=== PATIENT | male | born 1965 | race Caucasian/White ===

== ENCOUNTER 2016-03-25 11:15 | Emergency (ER) | payer OTHER ==
[2016-03-25] MEDS ORDERED: 0.9 % SODIUM CHLORIDE 1,000 ML IV ONE (11:58)
--- NOTE | 2016-03-25 12:00 | ED Physician Documentation ---
Dizziness - HISTORIAN Historian: patient, spouse - HPI Stated Complaint: Lt facial/arm tingling for several days, worse today Chief Complaint: Dizziness Timing: cannot confirm onset, gone now Severity: moderate Associated Symptoms: light headedness. denies: sense of falling, headache, weakness, numbness, nearly fainted, sense of confusion Decreased Ability to Stand/ Walk: off balance Usually: walks w/o assistance Worsened By: nothing Further Comments: yes (50 year old male patient presents with compaints of dizzy spells. Patient reports the spells started 3 days ago, reports 6-8 spells each day. Reports dizziness with tingling of left arm and left side of face. Patient denies any dizziness or tingling at present. Denies increased stress or anxiety.) - ROS CONST: none EYES/ENT: none GI/: none MS/SKIN/LYMPH: none NEURO/PSYCH: none CVS/RESP: none - PAST HX Past History: hyperlipidemia, hypertension, other (GERD) Immunizations: UTD Allergies/Adverse Reactions: Allergies Allergy/AdvReac Type Severity Reaction Status Date / Time No Known Allergies Allergy Verified 03/25/16 11:44 Home Medications: Ambulatory Orders Medication Instructions Recorded Hydrochlorothiazide 25 mg PO D 03/25/16 [Hydrochlorothiazide] Lisinopril [Lisinopril] 20 mg PO D 03/25/16 Pravastatin Sodium [Pravastatin 40 mg PO D 03/25/16 Sodium] - SOCIAL HX Smoking History: chew - FAMILY HX Family History: denies: none - VITAL SIGNS Vital Signs: Vital Signs Temp Pulse Resp BP Pulse Ox 97.8 F 66 18 139/87 100 03/25/16 11:22 03/25/16 11:22 03/25/16 11:22 03/25/16 11:22 03/25/16 11:22 - REVIEWED ASSESSMENTS Nursing Assessment Reviewed: Yes Vitals Reviewed: Yes Progress - Progress Progress: Patient up walking in ER, no dizziness, gait steady. Orthostatics negative at discharge. Reviewed discharge instructions. Patient verbalized understanding. Strongly encouraged no driving until episodes resolved. Follow up with Dr Mock in 1-2 days if episodes continue. ED Results Lab/Radiology - Radiology Radiology Impressions: CT HEAD WO CONTRAST History: BLACKOUTS AND ARM NUMBNESS SINCE 03/23/16 Technique: Standard noncontrast CT was performed with contiguous axial images acquired from skull base to vertex. Findings: There is no acute extra-axial fluid collection. Ventricles are of normal size, shape, and morphology. No mass effect or midline shift is present. No evidence of acute hemorrhage. The husain-white matter differentiation is normal. The visualized portions of the orbits, and paranasal sinuses, and mastoids are normal. No fractures are identified. Impression: 1. Normal non contrast brain CT. Electronically signed on Mar 25, 2016 11:50:14 AM MATH INSTRUCTOR by: Blayne Buenrostro - Orders Orders: ED Orders Category Date Time Status Place Saline Lock/IV NOW Care 03/25/16 11:[address] BRAIN W/O CONTRAST Stat Exams 03/25/16 Ordered CBC/PLATELET/DIFF Stat Lab 03/25/16 11:26 Ordered CMP Stat Lab 03/25/16 11:26 Ordered 0.9 % Sodium Chloride [Normal Saline] 1,000 ml Med 03/25/16 11:58 Discontinued IV NOW Dizziness Physical Exam - Physical Exam General Appearance: [id number] N EENT: eye inspection normal, ENT inspection normal, pharynx normal, no signs of dehydration, VIC, no nystagmus, TM's nml Respiratory: no respiratory distress, breath sounds nml, chest non-tender CVS: reg rate & rhythm, heart sounds normal, equal pulses, no murmur, no gallop , PMI nml, no JVD, no friction rub, 24 Abdomen: soft, no organomegaly, normal bowel sounds, no abdominal bruit, no distension Skin: normal color, warm/dry, NR, INT, PAL, DR Neuro: nml orientation, nml speech, nml cognition, mood/affect nml Extremities: non-tender, normal range of motion, no evidence of injury, no edema , J, PHARMACY DATA ANALYST Cranial: nml as tested, no evidence of acute CVA Cerebellar: nml as tested, nml gait Sensorimotor: motor nml, sensation nml Discharge Clincal Impression: Hypokalemia Referrals: Primary Doctor,No [Primary Care Provider] - 2 Days Additional Instructions: You potassium was slightly low today. You were given potassium tabs in the ER. If you symptoms continue, follow up with Dr. Mock in 1-2 days. No driving until you are symptom free. Home Medications: Ambulatory Orders Hydrochlorothiazide [Hydrochlorothiazide] 25 mg PO D 03/25/16 Lisinopril [Lisinopril] 20 mg PO D 03/25/16 Pravastatin Sodium [Pravastatin Sodium] 40 mg PO D 03/25/16 Condition: Stable Disposition: 01 HOME, SELF-CARE Decision to Admit: NO Decision Time: 13:54
[2016-03-25 12:17] LABS: BASOPHILS % 0.2 (0.0-1.5); EOSINOPHILS % 1.6 % (0.0-6.8); LYMPHOCYTES # 1.4 # k/uL (0.6-4.0); MEAN CORPUSCULAR HEMOGLOBIN 31.1 pg (28.0-34.0); MONOCYTES # 0.3 # k/uL (0.0-0.9); MONOCYTES % 4.2 % (0.0-11.0); NEUTROPHILS # 5.1 # k/uL (1.4-7.7)
[2016-03-25 12:33] LABS: eGFR (African) > 60; eGFR (Non-African) > 60
[2016-03-25] MEDS ORDERED: POTASSIUM CHLORIDE 20 MEQ TABLET.ER PO ONE (13:06)
[2016-03-25 14:14] VITALS: BP 137/94
--- NOTE | 2016-03-25 15:05 | Diagnostic Imaging Report ---
[facility] [address] [facility].[address] [id number] Report Submission Date: Mar 25, 2016 11:50:14 AM VETERANS ADVISER Patient Study Name: IMANI ESTRELLA Date: Mar 25, 2016 11:35:37 AM VETERANS ADVISER Modality Type: CT\SR Gender: M Description: CT BRAIN W/O CONTRAST : 61 Institution: [facility] Physician DALTON RODRIGUEZ (MARK) - ER CT HEAD WO CONTRAST History: BLACKOUTS AND ARM NUMBNESS SINCE 03/23/16 Technique: Standard noncontrast CT was performed with contiguous axial images acquired from skull base to vertex. Findings: There is no acute extra-axial fluid collection. Ventricles are of normal size, shape, and morphology. No mass effect or midline shift is present. No evidence of acute hemorrhage. The husain-white matter differentiation is normal. The visualized portions of the orbits, and paranasal sinuses, and mastoids are normal. No fractures are identified. Impression: 1. Normal non contrast brain CT. Electronically signed on Mar 25, 2016 11:50:14 AM VETERANS ADVISER by: Blayne Buenrostro [facility] SYSTEMRosanna
== END 2016-03-25 14:05 | disposition home or self-care (01) ==
LOC: ED 11:15
DX: E87.6 Hypokalemia (principal)
CPT/HCPCS: 70450; 80053; 85025; A9270; J7030; 96360; 99283; S1016